=== PATIENT | male | born 1990 | race African-American/Black ===

== ENCOUNTER 2024-08-23 02:33 | Inpatient (IN) | payer MEDICAID, OTHER ==
[~2024-08-23] VITALS: Ht 182.9 cm; Wt 64.0 kg
[~2024-08-23 02:33] MED LIST: INSLIS SUBCUT; LANTUSUD SUBCUT; LEVO500T2 PO
[2024-08-23] MEDS: MORPHINE SULFATE 4 MG/ML INJ (FOR IV/IM USE) IV STA (03:02)
[2024-08-23] MEDS: METOCLOPRAMIDE HCL 10MG/2ML VIAL IV STA (03:03)
[2024-08-23] MEDS: PANTOPRAZOLE SODIUM 40 MG/VIAL IV STA (03:03)
[2024-08-23] MEDS: SODIUM CHLORIDE 0.9% 1,000 ML IV ONE (03:03)
[2024-08-23 03:22] LABS: BASOPHILS % 0.7 % (0.0-2.0); HEMATOCRIT. 46.4 % (42.0-52.0); HEMOGLOBIN. 16.5 g/dL (14.0-18.0); LYMPHOCYTES % 10.8 % (20.0-50.0); MEAN CORPUSCULAR HEMOGLOBIN 31.8 pg (28.0-32.0); MEAN CORPUSCULAR HGB CONC 35.5 g/dL (31.0-37.0); MEAN CORPUSCULAR VOLUME 89.5 fL (80.0-94.0); MEAN PLATELET VOLUME 9.2 fl (7.4-10.4); MONOCYTES % 1.7 % (2.0-8.0); NEUTROPHILS % 86.8 % (40.0-76.0); PLATELET 280 x1000/uL (130-400); RED BLOOD CELL COUNT 5.18 mill/uL (4.7-6.1); RED CELL DISTRIBUTION WIDTH 12.7 % (11.6-14.6); WHITE BLOOD COUNT 15.6 x1000/uL (4.5-11.0)
[2024-08-23 03:25] LABS: BG BASE EXCESS -4.1 mmol/L (-2.0-3.0); BG CARBOXYHEMOGLOBIN 1.8 % (0.5-1.5); BG DEOXYHEMOGLOBIN 1.6 % (0.0-5.0); BG FRACTION INSPIRED OXYGEN 21; BG HCO3 ACT 17.6 mmol/L (21.0-28.0); BG OXYGEN SATURATION 98.4 % (94.0-98.0); BG OXYHEMOGLOBIN 96.6 % (94.0-98.0); BG PCO2 25.2 mmHg (35.0-48.0); BG PH 7.463 (7.350-7.450); BG PO2 108.5 mmHg (83.0-108.0); BG SAMPLE SITE LEFT RADIAL; BG TOTAL HEMOGLOBIN 15.4 g/dL (13.5-17.5); BG VENT MODE ROOM AIR
[2024-08-23 04:30] LABS: CHLORIDE 95 mEq/L (98-107); POTASSIUM 3.7 mEq/L (3.5-5.1); SODIUM 135 mEq/L (136-145)
[2024-08-23 04:31] LABS: CALCIUM 10.6 mg/dL (8.7-10.4); CARBON DIOXIDE 22 mEq/L (21-32)
[2024-08-23 04:36] LABS: CREATININE 1.1 mg/dL (0.6-1.3); GLUCOSE 347 mg/dL (70-105); UREA NITROGEN BLOOD 14 mg/dL (9-23)
[2024-08-23 04:38] LABS: ALANINE AMINOTRANSFERASE 22 IU/L (10-49); ALBUMIN 4.8 g/dL (3.2-4.8); ASPARTATE AMINOTRANSFERASE 19 IU/L (<34); BETA HYDROXYBUTYRATE 2.4 mMol/L (0.0-0.3); BILIRUBIN TOTAL 0.8 mg/dL (0.1-1.0); PROTEIN TOTAL 7.4 g/dL (6.0-8.3)
[2024-08-23] MEDS: HYDROMORPHONE HCL/PF 2MG/ML INJ IV NR (04:46)
[2024-08-23] MEDS: METOCLOPRAMIDE HCL 10MG/2ML VIAL IV NR (04:47)
[2024-08-23 04:51] LABS: ETHANOL BLOOD < 10 mg/dL (<10)
[2024-08-23 07:00] LABS: CLARITY URINE CLEAR (CLEAR); COLOR URINE YELLOW (YELLOW); GLUCOSE URINE 3+ (NEGATIVE); KETONES URINE 3+ (NEGATIVE); LEUKOCYTE ESTERASE URINE NEGATIVE (NEGATIVE); NITRITE URINE NEGATIVE (NEGATIVE); OCCULT BLOOD URINE NEGATIVE (NEGATIVE); PH URINE 5.5 (4.5-8.0); PROTEIN URINE 2+ (NEGATIVE); SPECIFIC GRAVITY URINE 1.053 (1.005-1.030); UROBILINOGEN URINE 0.2 E.U./dL (0.2-1.0)
[2024-08-23] MEDS ORDERED: IOHEXOL-300 100 ML BOTTLE ONE (07:06)
[2024-08-23 07:22] LABS: *AMPHETAMINES SCREEN URINE NEGATIVE (NEGATIVE); *BARBITURATES SCREEN URINE NEGATIVE (NEGATIVE); *BENZODIAZEPINES SCREEN URINE NEGATIVE (NEGATIVE); *COCAINE SCREEN URINE NEGATIVE (NEGATIVE); CANNABINOID URINE SCREEN PRESUMPTIVE POSITIVE (NEGATIVE); ECSTASY MDMA SCREEN URINE NEGATIVE (NEGATIVE); METHADONE URINE SCREEN NEGATIVE (NEGATIVE); OPIATES URINE SCREEN PRESUMPTIVE POSITIVE (NEGATIVE); PHENCYCLIDINE URINE SCREEN NEGATIVE (NEGATIVE)
[2024-08-23 08:00] VITALS: BP 127/68; PULSE 97; RESP 20; TEMP 36.5; O2SAT 100
[2024-08-23 08:17] LABS: SQUAMOUS EPITHELIAL CELL URINE 2+ /lpf (RARE/1+)
[2024-08-23 08:18] LABS: BACTERIA URINE TRACE; RBC URINE 0-2 /hpf (0-2)
[2024-08-23 12:00] VITALS: BP 129/86; PULSE 100; RESP 20; TEMP 37.9; O2SAT 100
[2024-08-23 12:25] VITALS: BP 122/78; PULSE 89; RESP 18; TEMP 38
[2024-08-23] MEDS: ONDANSETRON HCL 4MG/2ML INJ IV PRN (12:39)
[2024-08-23] MEDS: INSULIN LISPRO 100 UNITS/ML SUBCUT SCH (12:40)
[2024-08-23] MEDS: MORPHINE SULFATE 2 MG/ML INJ (NOT FOR IM USE) IV PRN (12:41)
[2024-08-23] MEDS ORDERED: DEXTROSE 50% WATER 50ML SYRINGE IV PRN (12:45)
[2024-08-23] MEDS ORDERED: ZOLPIDEM TARTRATE 5MG TABLET PO PRN (12:45)
[2024-08-23] MEDS ORDERED: MORPHINE SULFATE 2 MG/ML INJ (NOT FOR IM USE) IV PRN (12:45)
[2024-08-23] MEDS ORDERED: NALOXONE HCL 0.4MG/ML VIAL IV PRN (12:45)
[2024-08-23] MEDS ORDERED: IPRATROPIUM/ALBUTEROL 0.5-3(2.5)MG/3ML NEB NEB PRN (12:45)
[2024-08-23] MEDS ORDERED: CLONIDINE 0.1MG TABLET PO PRN (12:45)
[2024-08-23] MEDS ORDERED: DOCUSATE SODIUM 100MG CAPSULE PO PRN (12:45)
[2024-08-23] MEDS: ENOXAPARIN 40MG/0.4ML SYR SUBCUT SCH (14:40)
[2024-08-23] MEDS: CEFTRIAXONE 1GM/50ML 50 ML IV SCH (14:41)
[2024-08-23] MEDS: HYDROMORPHONE HCL/PF 2MG/ML INJ IV PRN (15:14)
[2024-08-23] MEDS: METOCLOPRAMIDE HCL 10MG/2ML VIAL IV SCH (15:15)
[2024-08-23 16:00] VITALS: BP 132/79; PULSE 99; RESP 20; TEMP 37.1; O2SAT 99
[2024-08-23] MEDS: BLOOD SUGAR DIAGNOSTIC STRIP TEST SCH (17:10)
[2024-08-23 17:55] LABS: CHLORIDE 96 mEq/L (98-107); POTASSIUM 3.5 mEq/L (3.5-5.1); SODIUM 131 mEq/L (136-145)
[2024-08-23 17:56] LABS: CALCIUM 9.7 mg/dL (8.7-10.4); CARBON DIOXIDE 23 mEq/L (21-32)
[2024-08-23 18:01] LABS: CREATININE 0.9 mg/dL (0.6-1.3); GLUCOSE 256 mg/dL (70-105); UREA NITROGEN BLOOD 14 mg/dL (9-23)
[2024-08-23] MEDS: SODIUM CHLORIDE 0.9% 1,000 ML IV SCH (19:40)
[2024-08-23 20:00] VITALS: BP_SYST 124; BP_DIAS 93; BP_DIAS 94; PULSE 119; RESP 18; TEMP 36.7; O2SAT 100
[2024-08-23 20:41] VITALS: BP 122/78; PULSE 89; RESP 20; TEMP 37
[2024-08-23] MEDS: INSULIN GLARGINE 100 UNITS/ML SUBCUT SCH (21:09)
[2024-08-24] VITALS: BP 115/67; PULSE 96; RESP 19; TEMP 36.7; O2SAT 100
[2024-08-24 04:00] VITALS: BP 106/53; PULSE 87; RESP 17; TEMP 36.7; O2SAT 100
[2024-08-24 05:15] LABS: CHLORIDE 100 mEq/L (98-107); POTASSIUM 3.5 mEq/L (3.5-5.1); SODIUM 134 mEq/L (136-145)
[2024-08-24 05:16] LABS: CARBON DIOXIDE 28 mEq/L (21-32)
[2024-08-24 05:17] LABS: CALCIUM 8.7 mg/dL (8.7-10.4)
[2024-08-24 05:22] LABS: GLUCOSE 218 mg/dL (70-105); UREA NITROGEN BLOOD 14 mg/dL (9-23)
[2024-08-24 05:31] LABS: BASOPHILS % 0.5 % (0.0-2.0); EOSINOPHILS % 0.8 % (0.0-5.0); HEMATOCRIT. 38.1 % (42.0-52.0); HEMOGLOBIN. 13.1 g/dL (14.0-18.0); LYMPHOCYTES % 32.3 % (20.0-50.0); MEAN CORPUSCULAR HGB CONC 34.4 g/dL (31.0-37.0); MEAN PLATELET VOLUME 9.2 fl (7.4-10.4); MONOCYTES % 6.9 % (2.0-8.0); NEUTROPHILS % 59.5 % (40.0-76.0); PLATELET 187 x1000/uL (130-400); RED CELL DISTRIBUTION WIDTH 12.4 % (11.6-14.6); WHITE BLOOD COUNT 9.6 x1000/uL (4.5-11.0)
[2024-08-24] MEDS: ONDANSETRON HCL 4MG/2ML INJ IV PRN (11:00)
[2024-08-24 11:01] VITALS: BP 116/85; PULSE 87; RESP 17
[2024-08-24] MEDS: PANTOPRAZOLE SODIUM 40 MG/VIAL IV SCH (13:16)
[2024-08-24] MEDS ORDERED: LEVO750T68 MT (15:56)
== END 2024-08-24 17:35 | disposition left against medical advice (07) | DRG 48 ==
LOC: ER 02:33 → 8WST 04:47 → EDBEDREQSVC 05:05 → EDBEDREQ 05:05 → EDBEDREQTM 05:05
PROVIDERS: ADMIT Internal Medicine; ATTEND Internal Medicine
DX: E11.43 Type 2 diabetes mellitus with diabetic autonomic (poly)neuropathy (principal); E87.20 Acidosis, unspecified; K31.84 Gastroparesis; E11.65 Type 2 diabetes mellitus with hyperglycemia; Z53.29 Procedure and treatment not carried out because of patient's decision for other reasons; Z90.49 Acquired absence of other specified parts of digestive tract
CPT/HCPCS: 36415; 36600; 71045; 74177; 80048; 80053; 80305; 80320; 81003; 82010; 82375; 82805; 82962; 83036; 83605; 85025; 93005; 93970; 99291; J0696; J1171; J1650; J1815; J2270; J2405; J2470; J2765; J7030; Q9967; G0480

== ENCOUNTER 2024-10-01 17:50 | Emergency (ER) | payer OTHER ==
[~2024-10-01] VITALS: Ht 182.9 cm; Wt 63.5 kg
[~2024-10-01 17:50] MED LIST changes: +LEVO750T68 MT
[2024-10-01 17:58] VITALS: BP 149/97; TEMP 36.8; O2SAT 100
[2024-10-01 18:00] VITALS: PULSE 116; RESP 20; O2SAT 100
[2024-10-01 18:34] LABS: BASOPHILS % 1.5 % (0.0-2.0); EOSINOPHILS % 0.9 % (0.0-5.0); HEMATOCRIT. 45.7 % (42.0-52.0); HEMOGLOBIN. 15.8 g/dL (14.0-18.0); LYMPHOCYTES % 27.8 % (20.0-50.0); MEAN CORPUSCULAR HEMOGLOBIN 31.6 pg (28.0-32.0); MEAN CORPUSCULAR HGB CONC 34.5 g/dL (31.0-37.0); MEAN CORPUSCULAR VOLUME 91.7 fL (80.0-94.0); MEAN PLATELET VOLUME 9.5 fl (7.4-10.4); MONOCYTES % 5.8 % (2.0-8.0); PLATELET 287 x1000/uL (130-400); RED BLOOD CELL COUNT 4.98 mill/uL (4.7-6.1); RED CELL DISTRIBUTION WIDTH 12.7 % (11.6-14.6); WHITE BLOOD COUNT 9.5 x1000/uL (4.5-11.0)
[2024-10-01 18:43] LABS: CHLORIDE 92 mEq/L (98-107); POTASSIUM 3.3 mEq/L (3.5-5.1); SODIUM 132 mEq/L (136-145)
[2024-10-01 18:44] LABS: CARBON DIOXIDE 21 mEq/L (21-32)
[2024-10-01 18:45] LABS: CALCIUM 10.3 mg/dL (8.7-10.4)
[2024-10-01 18:49] LABS: UREA NITROGEN BLOOD 10 mg/dL (9-23)
[2024-10-01 18:54] LABS: GLUCOSE 396 mg/dL (70-105)
== END 2024-10-01 22:07 | disposition left against medical advice (07) ==
LOC: ER 17:50
DX: R11.2 Nausea with vomiting, unspecified (principal); E11.9 Type 2 diabetes mellitus without complications; Z90.49 Acquired absence of other specified parts of digestive tract; Z53.21 Procedure and treatment not carried out due to patient leaving prior to being seen by health care provider
CPT/HCPCS: 36415; 80048; 82962; 85025

== ENCOUNTER 2025-05-19 14:30 | Emergency (ER) | payer MEDICAID, OTHER ==
[~2025-05-19] VITALS: Ht 177.8 cm; Wt 69.0 kg
[~2025-05-19 14:30] MED LIST changes: +HYDR-4350 MT; +INSU100I28 SQ; -LEVO500T2 PO; -LEVO750T68 MT; +METF-416 MT; +ONDA-239 PO; +ONDA4TAB50 MT
[2025-05-19 14:36] VITALS: O2SAT 100
[2025-05-19] MEDS: METOCLOPRAMIDE HCL 10MG/2ML VIAL IV ONE (15:27)
[2025-05-19] MEDS: SODIUM CHLORIDE 0.9% 1,000 ML IV ONE (15:27)
[2025-05-19] MEDS: KETOROLAC 15MG/ML VIAL IV ONE (15:27)
[2025-05-19] MEDS: FAMOTIDINE 20MG/2ML VIAL IV ONE (15:28)
[2025-05-19 15:48] LABS: BASOPHILS % 0.9 % (0.0-2.0); EOSINOPHILS % 0.2 % (0.0-5.0); HEMATOCRIT. 41.2 % (42.0-52.0); HEMOGLOBIN. 14.5 g/dL (14.0-18.0); LYMPHOCYTES % 18.7 % (20.0-50.0); MEAN PLATELET VOLUME 8.3 fl (7.4-10.4); MONOCYTES % 7.3 % (2.0-8.0); NEUTROPHILS % 72.9 % (40.0-76.0); PLATELET 253 x1000/uL (130-400); RED BLOOD CELL COUNT 4.69 mill/uL (4.7-6.1); RED CELL DISTRIBUTION WIDTH 12.5 % (11.6-14.6)
[2025-05-19 15:59] LABS: CREATININE 0.8 mg/dL (0.6-1.3); UREA NITROGEN BLOOD 6 mg/dL (9-23)
[2025-05-19 16:00] LABS: ETHANOL BLOOD < 10 mg/dL (<10); TROPONIN I HIGH SENSITIVITY 33 ng/L (3.0-53)
[2025-05-19 16:01] LABS: ASPARTATE AMINOTRANSFERASE 17 IU/L (<34); BILIRUBIN DIRECT 0.2 mg/dL (<=3.0); BILIRUBIN TOTAL 0.7 mg/dL (0.1-1.0); PROTEIN TOTAL 6.5 g/dL (6.0-8.3)
[2025-05-19 17:42] LABS: CLARITY URINE CLOUDY (CLEAR); COLOR URINE YELLOW (YELLOW); GLUCOSE URINE 3+ (NEGATIVE); KETONES URINE NEGATIVE (NEGATIVE); LEUKOCYTE ESTERASE URINE TRACE (NEGATIVE); NITRITE URINE NEGATIVE (NEGATIVE); OCCULT BLOOD URINE NEGATIVE (NEGATIVE); PH URINE 7.5 (4.5-8.0); PROTEIN URINE NEGATIVE (NEGATIVE); SPECIFIC GRAVITY URINE 1.013 (1.005-1.030); UROBILINOGEN URINE 1.0 E.U./dL (0.2-1.0)
[2025-05-19] MEDS: KCL 20MEQ/100ML PREMIX 100 ML IV SCH (17:45)
[2025-05-19 17:48] LABS: *AMPHETAMINES SCREEN URINE NEGATIVE (NEGATIVE)
[2025-05-19 17:49] LABS: *BARBITURATES SCREEN URINE NEGATIVE (NEGATIVE); *BENZODIAZEPINES SCREEN URINE NEGATIVE (NEGATIVE); *COCAINE SCREEN URINE NEGATIVE (NEGATIVE); CANNABINOID URINE SCREEN PRESUMPTIVE POSITIVE (NEGATIVE); ECSTASY MDMA SCREEN URINE NEGATIVE (NEGATIVE); METHADONE URINE SCREEN NEGATIVE (NEGATIVE); OPIATES URINE SCREEN PRESUMPTIVE POSITIVE (NEGATIVE); PHENCYCLIDINE URINE SCREEN NEGATIVE (NEGATIVE)
[2025-05-19] MEDS: MORPHINE SULFATE 4 MG/ML INJ (FOR IV/IM USE) IV NR (17:59)
[2025-05-19] MEDS ORDERED: MORPHINE SULFATE 2 MG/ML INJ (NOT FOR IM USE) IV ONE (18:00)
[2025-05-19 18:09] LABS: BACTERIA URINE 3+; RBC URINE NONE SEEN /hpf (0-2); SQUAMOUS EPITHELIAL CELL URINE FEW /lpf (RARE/1+)
[2025-05-19 19:22] VITALS: BP 149/95; PULSE 69; RESP 18; TEMP 37.2; O2SAT 98
== END 2025-05-19 19:26 | disposition left against medical advice (07) ==
LOC: ER 14:30 → EDBEDREQSVC 18:27 → EDBEDREQ 19:17 → EDBEDREQTM 19:17 → ER 19:26 → CMPBEDREQ 05-21 07:21
DX: R10.13 Epigastric pain (principal); F10.90 Alcohol use, unspecified, uncomplicated; E11.9 Type 2 diabetes mellitus without complications; E87.6 Hypokalemia; I10 Essential (primary) hypertension; Z79.4 Long term (current) use of insulin; Z79.84 Long term (current) use of oral hypoglycemic drugs; Z90.49 Acquired absence of other specified parts of digestive tract; Z79.899 Other long term (current) drug therapy; Y90.9 Presence of alcohol in blood, level not specified
CPT/HCPCS: 80076; 80305; 80048; 81003; 80320; 82962; 83690; 85025; 84484; 36415; 76705; 96361; 96365; 96375; 99291; J1308; J1885; J2765; J3480; J2270; J7030; Z7610 ×2; A4606; G0480

== ENCOUNTER 2025-05-21 11:40 | Emergency (ER) | payer MEDICAID ==
[~2025-05-21] VITALS: Ht 180.3 cm; Wt 80.0 kg
[2025-05-21 11:42] VITALS: TEMP 36.9; O2SAT 99
[2025-05-21] MEDS: METOCLOPRAMIDE HCL 10MG/2ML VIAL IV ONE (13:14)
[2025-05-21] MEDS: SODIUM CHLORIDE 0.9% 1,000 ML IV ONE (13:14)
[2025-05-21 13:26] VITALS: BP 156/89; PULSE 64; RESP 14
[2025-05-21] MEDS: KETOROLAC 30MG/ML VIAL IV ONE (13:26)
[2025-05-21] MEDS: HALOPERIDOL LACTATE 5MG/ML VIAL IM ONE (13:26)
== END 2025-05-21 14:04 | disposition left against medical advice (07) ==
LOC: ER 11:40 → CMPBEDREQ 14:06
DX: R10.84 Generalized abdominal pain (principal); E11.9 Type 2 diabetes mellitus without complications; Z79.84 Long term (current) use of oral hypoglycemic drugs; Z90.49 Acquired absence of other specified parts of digestive tract; Z79.4 Long term (current) use of insulin; Z79.899 Other long term (current) drug therapy; Z53.29 Procedure and treatment not carried out because of patient's decision for other reasons
CPT/HCPCS: 99284; 96374; 96361; 96375; 96372; J1885; J1630; J2765; J7030

== ENCOUNTER 2025-06-09 15:31 | Emergency (ER) | payer MEDICAID, OTHER ==
[~2025-06-09] VITALS: Ht 182.9 cm; Wt 86.0 kg
[2025-06-09 15:34] VITALS: O2SAT 98
[2025-06-09 15:51] VITALS: BP 143/111; PULSE 121; RESP 16; TEMP 37; O2SAT 100
[2025-06-09] MEDS: SODIUM CHLORIDE 0.9% 1,000 ML IV ONE (16:21)
[2025-06-09] MEDS: CAPSAICIN 0.075% CREAM 57GM TOP STA (16:28)
[2025-06-09] MEDS: ACETAMINOPHEN 1000MG/100ML 100 ML IV ONE (16:28)
[2025-06-09] MEDS: ONDANSETRON HCL 4MG/2ML INJ IV ONE (16:28)
[2025-06-09 16:58] LABS: BASOPHILS % 0.8 % (0.0-2.0); EOSINOPHILS % 0.5 % (0.0-5.0); HEMATOCRIT. 45.4 % (42.0-52.0); HEMOGLOBIN. 15.5 g/dL (14.0-18.0); LYMPHOCYTES % 17.1 % (20.0-50.0); MEAN PLATELET VOLUME 9.7 fl (7.4-10.4); MONOCYTES % 4.1 % (2.0-8.0); NEUTROPHILS % 77.5 % (40.0-76.0); PLATELET 266 x1000/uL (130-400); RED BLOOD CELL COUNT 5.04 mill/uL (4.7-6.1); RED CELL DISTRIBUTION WIDTH 12.8 % (11.6-14.6)
[2025-06-09 17:11] LABS: CREATININE 0.6 mg/dL (0.6-1.3); ETHANOL BLOOD < 10 mg/dL (<10); UREA NITROGEN BLOOD 13 mg/dL (9-23)
[2025-06-09 17:13] LABS: ASPARTATE AMINOTRANSFERASE 17 IU/L (<34); BILIRUBIN DIRECT 0.2 mg/dL (<=3.0); BILIRUBIN TOTAL 0.9 mg/dL (0.1-1.0); PROTEIN TOTAL 7.0 g/dL (6.0-8.3)
[2025-06-09 17:30] LABS: ERYTHROCYTE SEDIMENTATION RATE 3 mm/hr (0-15)
== END 2025-06-09 19:35 | disposition left against medical advice (07) ==
LOC: ER 15:31 → CMPBEDREQ 06-11 07:54
DX: R11.2 Nausea with vomiting, unspecified (principal); F17.200 Nicotine dependence, unspecified, uncomplicated; E11.65 Type 2 diabetes mellitus with hyperglycemia; Z90.49 Acquired absence of other specified parts of digestive tract
CPT/HCPCS: 80076; 80048; 80320; 83690; 85025; 85651; 36415; 71045; 74176; 96365; 96366; 96375; 99285; J2405; J7030; G0480; J0131